=== PATIENT | female | born 1945 | race African-American/Black ===

== ENCOUNTER 2022-12-16 09:09 | Emergency (ER) | payer BC, OTHER ==
[~2022-12-16] VITALS: Ht 170.2 cm; Wt 76.0 kg
[~2022-12-16 09:09] MED LIST: HCTZ; HYDR12.518; MELO-106; METH-773; OMEP40CA; SIMV-345; SIMVASTATIN; TRAM50TA3
[2022-12-16 09:15] VITALS: BP 155/123
[2022-12-16 10:33] LABS: BASOPHILS % 0.5 % (0.0-2.0); EOSINOPHILS % 2.1 % (0.0-5.0); HEMATOCRIT. 39.7 % (36.0-48.0); HEMOGLOBIN. 13.5 g/dL (12.0-16.0); MEAN CORPUSCULAR HEMOGLOBIN 30.6 pg (28.0-32.0); MEAN CORPUSCULAR VOLUME 89.9 fL (81.0-99.0); MEAN PLATELET VOLUME 9.8 fl (7.4-10.4); MONOCYTES % 14.9 % (2.0-8.0); NEUTROPHILS % 61.5 % (40.0-76.0); PLATELET 200 x1000/uL (130-400); RED BLOOD CELL COUNT 4.42 mill/uL (4.2-5.4); RED CELL DISTRIBUTION WIDTH 13.7 % (11.6-14.6)
[2022-12-16 10:40] LABS: CHLORIDE 110 mEq/L (98-107)
[2022-12-16 10:44] LABS: INR 1.1; PROTHROMBIN TIME 11.6 sec (9.6-11.0)
[2022-12-16] MEDS ORDERED: POTASSIUM CHLORIDE 20MEQ TABLET SR PO ONE (17:30)
== END 2022-12-16 19:17 | disposition home or self-care (01) ==
LOC: ER 09:09 → EDBEDREQ 10:37 → CANBEDREQ 18:51 → ER 19:17
DX: R05.9 Cough, unspecified (principal); U07.1 COVID-19; Z90.710 Acquired absence of both cervix and uterus; Z79.899 Other long term (current) drug therapy
CPT/HCPCS: 36415; 71045; 80053; 83605; 84145; 84484; 85025; 85610; 87040; 87426; 87804; 93005; 99285; C9803

== ENCOUNTER 2023-03-13 09:22 | Emergency (ER) | payer BC ==
[~2023-03-13] VITALS: Ht 170.2 cm; Wt 75.0 kg
[2023-03-13 10:23] VITALS: BP 114/56; PULSE 92; RESP 18; TEMP 98.4
[2023-03-13] MEDS ORDERED: AZIT250T12 MT (12:42)
[2023-03-13] MEDS ORDERED: DEXTL PO (12:42)
[2023-03-13] MEDS ORDERED: ALBU18HF2 IH (12:42)
== END 2023-03-13 13:53 | disposition home or self-care (01) ==
LOC: ER 09:25
DX: J20.9 Acute bronchitis, unspecified (principal); Z88.0 Allergy status to penicillin; Z88.6 Allergy status to analgesic agent; Z88.2 Allergy status to sulfonamides; Z88.5 Allergy status to narcotic agent
CPT/HCPCS: 71045; 99283

== ENCOUNTER 2023-04-30 09:22 | Emergency (ER) | payer BC ==
[~2023-04-30] VITALS: Ht 170.2 cm; Wt 66.0 kg
[~2023-04-30 09:22] MED LIST changes: +ALBU18HF2 IH; +AZIT250T12 MT; +DEXTL PO
[2023-04-30 09:47] VITALS: O2SAT 97
[2023-04-30 10:56] LABS: BASOPHILS % 0.8 % (0.0-2.0); DIFFERENTIAL COMMENT 0; EOSINOPHILS % 1.4 % (0.0-5.0); HEMOGLOBIN. 14.8 g/dL (12.0-16.0); LYMPHOCYTES % 34.3 % (20.0-50.0); MEAN CORPUSCULAR HEMOGLOBIN 30.9 pg (28.0-32.0); MEAN CORPUSCULAR HGB CONC 33.6 g/dL (31.0-37.0); MEAN PLATELET VOLUME 10.3 fl (7.4-10.4); MONOCYTES % 8.8 % (2.0-8.0); NEUTROPHILS % 54.7 % (40.0-76.0); PLATELET 169 x1000/uL (130-400); RED BLOOD CELL COUNT 4.79 mill/uL (4.2-5.4); RED CELL DISTRIBUTION WIDTH 14.6 % (11.6-14.6); WHITE BLOOD COUNT 3.5 x1000/uL (4.5-11.0)
[2023-04-30 12:25] LABS: CHLORIDE 107 mEq/L (98-107); INDEX HEMOLYSI 1 (1-3); INDEX ICTERIC 1 (1-4); INDEX LIPEMIC 1 (1-3); POTASSIUM 3.2 mEq/L (3.5-5.1); SODIUM 138 mEq/L (136-145)
[2023-04-30 12:33] LABS: ALANINE AMINOTRANSFERASE 20 IU/L (13-61); ASPARTATE AMINOTRANSFERASE 16 IU/L (15-37); BILIRUBIN TOTAL 0.6 mg/dL (0.1-1.0); CALCIUM 9.9 mg/dL (8.5-10.1); CARBON DIOXIDE 24 mEq/L (21-32); CREATININE 0.7 mg/dL (0.6-1.3); PROTEIN TOTAL 8.4 g/dL (6.0-8.3); UREA NITROGEN BLOOD 3 mg/dL (7-21)
[2023-04-30 13:32] LABS: CLARITY URINE TURBID (CLEAR); COLOR URINE DARK YELLOW (YELLOW); GLUCOSE URINE NEGATIVE (NEGATIVE); KETONES URINE 1+ (NEGATIVE); LEUKOCYTE ESTERASE URINE 2+ (NEGATIVE); NITRITE URINE NEGATIVE (NEGATIVE); OCCULT BLOOD URINE NEGATIVE (NEGATIVE); PROTEIN URINE 1+ (NEGATIVE); SPECIFIC GRAVITY URINE 1.035 (1.005-1.030)
[2023-04-30 13:45] LABS: NT PRO B-TYPE NATRIURETIC PEP 60 pg/mL (5-125); TROPONIN I HIGH SENSITIVITY 4 ng/L (<54)
[2023-04-30 14:02] LABS: CALCIUM OXALATE CRYSTALS URINE 3+ /lpf
[2023-04-30 14:03] LABS: RBC URINE 0-2 /hpf (0-2); SQUAMOUS EPITHELIAL CELL URINE 2+ /lpf (RARE/1+); WBC URINE 0-2 /hpf (0-2)
[2023-04-30 14:04] LABS: BACTERIA URINE 1+; YEAST URINE NONE SEEN
[2023-04-30 14:24] LABS: GLUCOSE 111 mg/dL (70-105)
[2023-04-30] MEDS ORDERED: ACETAMINOPHEN 325MG TABLET PO ONE (14:45)
[2023-04-30] MEDS ORDERED: MORPHINE SULFATE 2 MG/ML CPJ (NOT FOR IM USE) IV ONE (15:15)
[2023-04-30] MEDS ORDERED: ACET-2708 MT (16:44)
[2023-04-30 17:02] VITALS: BP 134/67; PULSE 92; RESP 19; TEMP 98.4
== END 2023-04-30 17:00 | disposition home or self-care (01) ==
LOC: ER 09:22
DX: R10.32 Left lower quadrant pain (principal); Z88.0 Allergy status to penicillin; Z88.2 Allergy status to sulfonamides; Z88.6 Allergy status to analgesic agent; Z88.5 Allergy status to narcotic agent; Z79.899 Other long term (current) drug therapy
CPT/HCPCS: 99285; 74176; 96374; 80053; 81003; 83880; 83690; 85025; 84484; 93005; 36415; J2270